=== PATIENT | male | born 1985 | race Caucasian/White ===

== ENCOUNTER 2017-07-17 17:22 | Emergency (ER) | payer OTHER, SELFPAY ==
[2017-07-17 17:23] VITALS: BP 130/96; PULSE 72; RESP 16; TEMP 37.7; O2SAT 98; BMI 27.8
--- NOTE | 2017-07-17 17:25 | ED.RN ---
PER PT TESTING IS NOT REQUIRED, [facility] NOT IN DATABASE ON INTRAN[employer]
--- NOTE | 2017-07-17 17:55 | RAD_ITS ---
STUDY: X-RAY - RIGHT TIBIA AND FIBULA REASON FOR EXAM: Male, 31 years old. Injury. TECHNIQUE: Frontal and lateral view(s) of the tibia and fibula were obtained on 4 films. COMPARISON: None. FINDINGS: Normal visualized tibia. Normal visualized fibula. There is no demonstrated acute fracture. The soft tissue structures are unremarkable. RAD/Tibia & Fibula 2 Views IMPRESSION: Normal x-ray examination of the right tibia and fibula. Electronically Signed: Newton Jordan MD at 18:22 EDT , Service support ,
[2017-07-17] MEDS: HYDROcodone Bitartrate/Apap 5/325 Tablet PO (18:16)
--- NOTE | 2017-07-17 19:15 | ED.VISSUMM ---
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 Patient states there were 20 sheets of plywood that fell from a leaning position and scraped down his anterior thighs and lower legs. His right distal lower leg was pinned underneath the plywood and other workers had to extract him. He is complaining of pain to his right mack. He is using crutches on arrival. Physical Examination: Vital signs are unremarkable. Head neck examination is unremarkable. Heart is regular rate and rhythm. Lung sounds are clear. Abdomen soft nontender. Lower extreme examination reveals abrasions to the anterior distal thighs into his shins bilaterally. He does have significant tenderness over the anterior right lower leg. There is mild edema. He has strong distal pulses. There is no sign of compartment syndrome. Strong distal pulses are noted throughout. He is able to fully flex and extend at the ankle without pain. Test Results: Right tib-fib x-rays are unremarkable. Emergency Department Course and Treatment: Patient is given [place] for pain. On repeat evaluation there continues to be no sign of compartment syndrome. I discussed this is a possibility with both he and his . I encouraged elevation of his leg tonight. He is given an Jani wrap over the right leg and [place] for home. He will follow-up with [facility] and for the referral will be needed if not improving. Treatment Plan: [] Disposition: Discharge Impression: Crush injury right leg This note was generated with [employer] dictation software. It may contain incorrect words, spelling, and punctuation that were not noted in review of the chart prior to signing ED Disposition - Plan for ED Patient: Disposition: Home or Assisted Living Chief Complaint: Lower Extremity Injury Instructions: ED Contusion Lower Ext Prescriptions: Hydrocodone Bitart/Apap 5-325 [[place] 5/325] 1 - 2 tablet PO Q4H PRN PRN 5 Days #20 tablet PRN Reason: Pain Referrals: [facility] [GROUP OF PHYSICIANS] - 3-5 Days Minor Yates [Primary Care Provider] -
--- NOTE | 2017-07-17 19:15 | ED.DEP ---
ED Disposition - Plan for ED Patient: Disposition: Home or Assisted Living Chief Complaint: Lower Extremity Injury Instructions: ED Contusion Lower Ext Prescriptions: Hydrocodone Bitart/Apap 5-325 [[place] 5/325] 1 - 2 tablet PO Q4H PRN PRN 5 Days #20 tablet PRN Reason: Pain Referrals: Minor Yates [Primary Care Provider] - [facility] [GROUP OF PHYSICIANS] - 3-5 Days
--- NOTE | 2017-07-17 19:21 | DCINST.ED_ITS ---
ED Disposition - Plan for ED Patient: Disposition: Home or Assisted Living Chief Complaint: Lower Extremity Injury Instructions: ED Contusion Lower Ext Prescriptions: Hydrocodone Bitart/Apap 5-325 [[place] 5/325] 1 - 2 tablet PO Q4H PRN PRN 5 Days # 20 tablet PRN Reason: Pain Referrals: Minor Yates [Primary Care Provider] - [facility] [GROUP OF PHYSICIANS] - 3-5 Days
[2017-07-17 19:55] VITALS: BP 134/87; PULSE 78; RESP 18; O2SAT 100
== END 2017-07-17 19:57 | disposition home or self-care (01) ==
PROVIDERS: Emergency Provider Emergency Medicine; Family Provider Family Medicine; PCP Family Medicine
DX: S87.81XA Crushing injury of right lower leg, initial encounter (principal); S70.312A Abrasion, left thigh, initial encounter; S70.311A Abrasion, right thigh, initial encounter; S80.812A Abrasion, left lower leg, initial encounter; S80.811A Abrasion, right lower leg, initial encounter; W20.8XXA Other cause of strike by thrown, projected or falling object, initial encounter; Y93.9 Activity, unspecified; Y92.9 Unspecified place or not applicable
CPT/HCPCS: 73590; 99283

== ENCOUNTER → 2017-08-01 10:14 | Outpatient (CLI) | payer OTHER, SELFPAY ==
--- NOTE | 2017-08-01 10:21 | MRI_ITS ---
STUDY: MRI RIGHT KNEE REASON FOR EXAM: Pain when walking, crush injury 2 weeks ago. TECHNIQUE: Standardized fat and water weighted pulse sequences were obtained in all 3 orthogonal planes. COMPARISON: Radiographs 07/17/2017. FINDINGS: There is very mild intrasubstance myxoid degeneration of the posterior horn of the medial meniscus without discrete medial meniscal tear. Normal hyaline cartilage of the medial femorotibial compartment. There is a small nondisplaced subchondral fracture of the anterior aspect of the medial tibial plateau (proton-density coronal images 17-19) with associated bone edema extending into the posterior aspect of the medial tibial plateau. There is a small bone contusion of the anterior aspect of the medial femoral condyle (T2 sagittal images 16-19). Normal medial collateral ligamentous complex (MCL). Normal distal semimembranosus, gracilis and semitendinosus tendons. Normal lateral meniscus. Normal hyaline cartilage of the lateral femorotibial compartment. There is a bone contusion of the anterior aspect of the lateral tibial plateau (T2 coronal images 15-18). Normal proximal tibiofibular articulation. Normal lateral collateral (fibular) ligament. Normal popliteus tendon. Normal biceps femoris tendon. Normal anterior cruciate ligament (ACL). Normal posterior cruciate ligament (PCL). Normal congruent patellofemoral articulation. Normal hyaline cartilage of the patellofemoral compartment. Normal medial and lateral patellar retinaculum. Normal visualized quadriceps tendon. Normal patellar tendon. Normal Hoffa's fat pad. There is a small joint effusion. There is a mildly thickened medial patellar plica (T2 sagittal image 17; T2 axial image 6). There is edema in the subcutis adipose space. The otherwise visualized osseous structures are unremarkable. MRI/Lower Ext Joint Only (Routine) IMPRESSION: Small nondisplaced fracture of the anterior aspect of the medial tibial plateau. Bone contusions of the medial femoral condyle and lateral tibial plateau. Small joint effusion. Mildly thickened medial patellar plica. N.B. : The above information has been verbally conveyed by Moshe Coronado MD to , Covering Physician, on 08/01/2017 13:53:11 (ET). Electronically Signed: Moshe Coronado MD at 13:32 EDT Tel , Service support , N.B. : The above information has been verbally conveyed by Moshe Coronado MD to , Covering Physician, on 08/01/2017 13:53:11 (ET).
== END ==
PROVIDERS: Family Provider Family Medicine; PCP Family Medicine; Visit Provider Family Medicine
DX: S87.81XA Crushing injury of right lower leg, initial encounter (principal); M25.561 Pain in right knee
CPT/HCPCS: 73721